=== PATIENT | female | born 2000 | race Caucasian/White ===

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

== ENCOUNTER → 2023-02-13 | Outpatient (CLI) | payer OTHER, MEDICAID ==
[2023-02-13 14:38] LABS: FREE T4 1.19 NG/DL (0.83-1.43); THYROID STIMULATING HORMONE 5.868 uIU/ML (0.48-4.17)
[2023-02-13 14:39] LABS: FOLLICLE STIMULATING HORMONE 4.8 mIU/ML; LUTEINIZING HORMONE 17.2 mIU/ML
[2023-02-13 14:41] LABS: HCG, SERUM QUALITATIVE NEGATIVE (NEGATIVE)
[2023-02-13 19:35] LABS: GC DNA AMPLIFICATION NEGATIVE (NEGATIVE)
[2023-02-14 15:10] LABS: TESTOSTERONE FREE (DIRECT) 1.7 pg/mL (0.0-4.2)
== END ==
LOC: M PLALAB 11:44
PROVIDERS: ATTEND Nurse Practitioner Women's Health
DX: N92.6 Irregular menstruation, unspecified (principal); Z11.3 Encounter for screening for infections with a predominantly sexual mode of transmission